=== PATIENT | female | born 1955 | race Caucasian/White ===

== ENCOUNTER 2024-09-15 07:05 | Day surgery (SDC) | payer OTHER ==
[~2024-09-15] VITALS: Ht 160 cm; Wt 59.1 kg
[2024-09-15] MEDS ORDERED: LIDOCAINE 2% 11 ML JELLY TP ONE (07:06)
[2024-09-15] MEDS ORDERED: LIDOCAINE 4% 50 ML SOLUTION TP ONE (07:06)
[2024-09-15] MEDS ORDERED: ALBUTEROL SULFATE 2.5 MG/0.5 ML NEB SOLUTION NEB ONE (07:06)
[2024-09-15] MEDS ORDERED: BENZOCAINE 20% 50 MCG/SPRAY 57 GM TP ONE (07:06)
[2024-09-15] MEDS: SODIUM CHLORIDE 0.9% 1,000 ML IV ONE (08:20)
[2024-09-15] MEDS ORDERED: FentaNYL CITRATE PF 100 MCG/2 ML VIAL ONE (08:29)
[2024-09-15] MEDS ORDERED: MIDAZOLAM HCL 2 MG/2 ML VIAL ONE (08:29)
[2024-09-15] MEDS ORDERED: MONT-35 PO (08:36)
[2024-09-15] MEDS ORDERED: DULO-113 PO (08:36)
[2024-09-15] MEDS ORDERED: METO50 PO (08:36)
[2024-09-15] MEDS ORDERED: AZEL23SP2 NASAL (08:36)
[2024-09-15] MEDS ORDERED: EVOL140P3 SQ (08:36)
[2024-09-15] MEDS ORDERED: AMLO-258 PO (08:36)
[2024-09-15] MEDS ORDERED: ALBU18HF12 IH (08:36)
[2024-09-15] MEDS ORDERED: LOSA-381 PO (08:36)
[2024-09-15] MEDS ORDERED: MethylPREDNISolone SOD SUCC 125 MG/2 ML VIAL ONE (10:20)
[2024-09-15 10:22] VITALS: PULSE 58; RESP 18; O2SAT 100
[2024-09-15] MEDS: MethylPREDNISolone SOD SUCC 125 MG/2 ML VIAL IVP ONE (11:08)
== END 2024-09-15 13:00 | disposition home or self-care (01) ==
LOC: SURGERY 07:05
PROVIDERS: ATTEND Internal Medicine Critical Care Medicine
DX: J38.4 Edema of larynx (principal); B37.0 Candidal stomatitis; I10 Essential (primary) hypertension; E78.00 Pure hypercholesterolemia, unspecified; G35 Multiple sclerosis; Z98.890 Other specified postprocedural states; Z87.01 Personal history of pneumonia (recurrent); I69.351 Hemiplegia and hemiparesis following cerebral infarction affecting right dominant side
CPT/HCPCS: 31623; 87206; 87101; 87220; 87070; 88108; 31624; 71045; 87015; J3010; J2250; J2919; J7613; Z7610